=== PATIENT | female | born 1935 | race Caucasian/White ===

== ENCOUNTER 2016-12-23 07:40 | Emergency (ER) | payer OTHER ==
[2016-12-23 07:47] VITALS: RESP 16; TEMP 97.5; O2SAT 93
--- NOTE | 2016-12-23 07:57 | EDPHY ---
H & P Time Seen by Provider: 12/23/16 07:49 HPI/ROS: CHIEF COMPLAINT: Right leg pain HISTORY OF PRESENT ILLNESS: Symptoms started on Saturday morning to 48 hours ago in the right lower extremity below the knee worse with weight-bearing. Better with Advil. No recent trauma and no radiation. No skin changes and no weakness or numbness in the foot. She does notice the leg is a little bit bigger. No fever or chills and no chest pain or shortness of breath. REVIEW OF SYSTEMS: Eye: no change in vision ENT: no sore throat Cardiac: no chest pain or syncope Pulmonary: no cough or SOB Abdomen: no vomiting, diarrhea, abdominal pain Musculoskeletal: HPI. She does have some chronic left-sided neck pain which is unchanged Skin: no rash Neuro: no headache Constitutional: no fever : no urinary symptoms A comprehensive 10 point review of systems is otherwise negative aside from elements mentioned in the history of present illness. PAST MEDICAL HISTORY: Includes breast cancer with mastectomy and reconstruction , hypercholesterolemia, hernia, eczema Social history: Nonsmoker, moved from [place] 2 years ago General Appearance: Alert and conversant, cooperative. Eyes: No scleral icterus. ENT, Mouth: Normal mucous membranes. Respiratory: Normal respiratory effort, breath sounds equal, lungs are clear to auscultation. Cardiovascular: Regular rate and rhythm. Gastrointestinal: Abdomen is soft and non tender. Neurological: Alert and oriented x3. Normally conversant. Face symmetric, normal movement and sensation in all extremities. Ambulatory, negative straight leg raising bilaterally. Skin: Warm and dry, no rashes. No skin redness or warmth. Musculoskeletal: Very slight right calf swelling but no tenderness to palpation in the posterior region. Normal range of motion of the knee and ankle. Normal motor and sensory and dorsalis pedis in the right foot. Compartments are soft. Slight tenderness over the right [place]. No rashes on the right lower extremity Psychiatric: Not agitated. Emergency Department course/MDM: X-ray right tib-fib and ultrasound right lower extremity Results discussed, patient ambulatory and comfortable now, symptomatic treatment and outpatient follow-up with PCP. Smoking Status: Never smoked Constitutional: Initial Vital Signs Temperature (C) 36.4 C 12/23/16 07:42 Heart Rate 95 12/23/16 07:42 Respiratory Rate 16 12/23/16 07:42 Blood Pressure 133/90 H 12/23/16 07:42 O2 Sat (%) 93 12/23/16 07:42 O2 Delivery Mode Room Air Allergies/Adverse Reactions: No Known Allergies Allergy (Unverified 08/04/16 13:25) Home Medications: Medication Instructions Recorded Vitamin D3 08/04/16 Medical Decision Making - Diagnostics Imaging: Negative right lower extremity ultrasound per Dr. Lisa at 8:41 a.m.. No DVT. X-ray right tib-fib personally interpreted by myself is negative. No fracture. Differential Diagnosis: Differential considered including but not limited to compartment syndrome, muscle strain, DVT, arterial occlusion, fracture Departure - Departure Disposition: Home, Routine, Self-Care Clinical Impression: Leg pain, right Condition: Good Instructions: Leg Pain (ED) Referrals: Yessi Brown MD [Primary Care Provider] - As per Instructions
[2016-12-23 09:12] VITALS: BP 135/105; PULSE 76
== END 2016-12-23 09:12 | disposition home or self-care (01) ==
DX: M79.604 Pain in right leg (principal); Z85.3 Personal history of malignant neoplasm of breast